=== PATIENT | female | born 1995 | race American Indian/Alaskan Native ===

== ENCOUNTER 2020-03-22 15:04 | Outpatient (CLI) | payer BC, MEDICAID ==
[2020-03-22 16:31] LABS: Bacteria,Urine 1+ /HPF (Negative); Bilirubin,Urine NEG (Negative); Blood,Urine NEG (Negative); Color,Urine Yellow (Yellow); Mucus,Urine FEW /HPF; Protein,Urine <15 mg/dL mg/dL (Negative)
[2020-03-22 18:30] LABS: Basophils # (Auto) 0.1 K/mm3 (0.0-0.1); Basophils % (Auto) 0.6 % (0.0-1.8); Eosinophils # (Auto) 0.1 K/mm3 (0.0-0.4); Eosinophils % (Auto) 0.5 % (0.0-4.3); Hematocrit 35.3 % (30.3-42.9); Hemoglobin 11.5 gm/dl (10.1-14.3); Lymphocytes # (Auto) 1.5 K/mm3 (1.2-5.4); Lymphocytes % (Auto) 13.2 % (13.4-35.0); Mean Corpuscular HGB Conc 33 % (30-34); Mean Corpuscular Volume 90 fl (79-97); Monocytes # (Auto) 0.7 K/mm3 (0.0-0.8); Monocytes % (Auto) 6.6 % (0.0-7.3); Platelet Count 234 K/mm3 (140-440); Red Blood Count 3.92 M/mm3 (3.65-5.03); Red Cell Distribution Width 14.1 % (13.2-15.2)
[2020-03-22 18:46] LABS: Alanine Aminotransferase 11 units/L (7-56); Albumin 3.1 g/dL (3.9-5); BUN/Creatinine Ratio 16; Blood Urea Nitrogen 8 mg/dL (7-17); Calcium 8.8 mg/dL (8.4-10.2); Hemolysis Index 16; Uric Acid 4.2 mg/dL (3.5-7.6)
[2020-03-22 19:21] VITALS: BP 123/67
--- NOTE | 2020-03-22 20:02 | Ultrasound Report ---
ULTRASOUND BIOPHYSICAL PROFILE INDICATION / CLINICAL INFORMATION: Evaluate heart rate and DESEAN. COMPARISON: No prior studies are available for comparison. FINDINGS: BREATHING MOVEMENT = 0 GROSS BODY MOVEMENT = 2 TONE = 2 QUALITATIVE AMNIOTIC FLUID VOLUME = 2 TOTAL BIOPHYSICAL SCORE = 8/8 AMNIOTIC FLUID INDEX (cm) = 13.6 PRESENTATION: Cephalic. HEART RATE (beats per minute): 124 IMPRESSION: 1. biophysical profile = 8 2. heart rate of 124 bpm. Signer Name: Fatmata Bowman MD Signed: 03/22/2020 7:58 PM Workstation Name: [id number]
--- NOTE | 2020-03-22 20:14 | Event Note ---
Date: 03/22/20 24 year old at 38 weeks, 4 days gestation came in for cervical check to rule out labor. Reported she had contraction every 10 minutes for several hours today; not that often now. Reactive NST. SVE /0; no change on cervix recheck. Not pema regularly; rare contraction. No LOF or VB. Active movement. DESEAN normal. BPP 6/8 (off for breathing). VSS. No headaches. Consulted with Dr. Figueroa re: this patient and cervical exam, FHR tracing, and US results. Dr. Figueroa orders to discharge patient home and have her follow up here on Wednesday03/25/2020 for another BPP. Patient instructed to perform daily movement counting and warning signs and signs of labor discussed. RN notified. 25 wbc/hpf ua; Rx to [facility] (Augmentin).
== END 2020-03-22 20:10 | disposition home or self-care (01) ==
LOC: TRG 15:04 → APU 15:07 → TRG 20:10
PROVIDERS: ATTEND Obstetrics & Gynecology
DX: O47.1 False labor at or after 37 completed weeks of gestation (principal); Z3A.38 38 weeks gestation of pregnancy
CPT/HCPCS: 36415; 59025; 76815; 76819; 80053; 81001; 83615; 84550; 85025; 87086